=== PATIENT | female | born 1990 | race Two or more races ===

== ENCOUNTER 2024-07-03 16:44 | Emergency (ER) | payer OTHER ==
[~2024-07-03] VITALS: Ht 160 cm; Wt 79.8 kg
[2024-07-03] MEDS ORDERED: METHYLPREDNISOLONE SOD SUCC 125 MG VIAL IV STA (18:50)
[2024-07-03] MEDS ORDERED: levoFLOXacin IN DEXTROSE 5 % 500MG/100ML PIGGYBAG IV STA (18:51)
[2024-07-03] MEDS ORDERED: ALBUTEROL SULFATE 3 ML/2.5 MG AMPUL.NEB IH STA (18:51)
[2024-07-03] MEDS ORDERED: METHYLPREDNISOLONE SOD SUCC 125 MG VIAL ONE (19:04)
[2024-07-03] MEDS ORDERED: levoFLOXacin IN DEXTROSE 5 % 500MG/100ML PIGGYBAG IV ONE (19:04)
[2024-07-03 19:07] LABS: HEMATOCRIT 35.9 % (36.0-45.00); HEMOGLOBIN 12.1 g/dL (12.0-15.00); MEAN CELL VOLUME 85.3 fL (80.00-100.00); MEAN CORPUSCULAR HEMOGLOBIN 28.7 pg (27.00-32.0); MEAN CORPUSCULAR HGB CONC 33.7 g/dl (32.0-36.0); PLATELET COUNT 204 K/uL (150-450); RED CELL DISTRIBUTION WIDTH 14.5 % (11.5-14.5)
[2024-07-03 19:32] LABS: ALBUMIN 3.6 gm/dL (3.4-5.0); BILIRUBIN TOTAL 0.22 mg/dL (0.3-1.2); CALCIUM 8.7 mg/dL (8.5-10.1); CREATININE SERUM 0.9 mg/dL (0.55-1.02); GFR 70.85; GLOBULINA 3.8 G/DL (2.4-3.5); POTASSIUM 3.68 mEq/L (3.5-5.1); TOTAL PROTEIN 7.4 gm/dL (6.4-8.2)
[2024-07-03] MEDS ORDERED: MONTELUKAST SODIUM 10 MG TABLET PO STA (21:46)
== END 2024-07-03 22:34 | disposition home or self-care (01) ==
LOC: ER 16:46
PROVIDERS: General Practice
DX: J45.901 Unspecified asthma with (acute) exacerbation (principal)

== ENCOUNTER → 2025-10-21 12:40 | Outpatient (CLI) | payer OTHER | END | disposition home or self-care (01) | LOC: PRENATAL 12:40 | PROVIDERS: ATTEND Obstetrics & Gynecology Maternal & Fetal Medicine | DX: O36.80X0 Pregnancy with inconclusive fetal viability, not applicable or unspecified (principal); Z36.82 Encounter for antenatal screening for nuchal translucency; Z36.0 Encounter for antenatal screening for chromosomal anomalies; Z14.8 Genetic carrier of other disease; O09.523 Supervision of elderly multigravida, third trimester; O34.219 Maternal care for unspecified type scar from previous cesarean delivery; Z3A.13 13 weeks gestation of pregnancy ==